=== PATIENT | male | born 1955 | race Caucasian/White ===

== ENCOUNTER 2017-12-14 07:33 | Emergency (ER) | payer MEDICARE, MEDICAID ==
[~2017-12-14] VITALS: Ht 172.7 cm; Wt 75.0 kg
[~2017-12-14 07:33] MED LIST: AZIT250T13 PO; CYCL-1 PO; METH500T PO; NO HOME MEDS
[2017-12-14] MEDS ORDERED: levoFLOXACIN-Levaquin 750MG/D5 150 ML IV ONE (09:05)
[2017-12-14] MEDS ORDERED: normal saline 1000ML IV soln IV ONE (09:05)
[2017-12-14] MEDS ORDERED: CefTRIAXone 2gm/NS 100ml IVPB 100 ML IV ONE (09:05)
[2017-12-14 09:56] LABS: BASOPHILS # (AUTO) 0.2 X10'3 (0-0.2); BASOPHILS % (AUTO) 1.9 % (0-1); EOSINOPHILS # (AUTO) 0.3 X10'3 (0-0.9); EOSINOPHILS % (AUTO) 3.2 % (0-6); HEMOGLOBIN 14.1 g/dl (14.0-17.9); LYMPHOCYTES # (AUTO) 1.6 X10'3 (1.1-4.8); LYMPHOCYTES % (AUTO) 16.4 % (21-51); MEAN CORPUSCULAR HEMOGLOBIN 29.6 PG (27.0-31.0); MEAN CORPUSCULAR HGB CONC 33.5 % (33.0-36.5); MEAN CORPUSCULAR VOLUME 88.7 FL (78-98); MEAN PLATELET VOLUME 8.1 FL (7.4-10.4); MONOCYTES # (AUTO) 0.7 X10'3 (0-0.9); MONOCYTES % (AUTO) 7.4 % (2-12); NEUTROPHILS # (AUTO) 6.8 X10'3 (1.8-7.7); NEUTROPHILS % (AUTO) 71.1 % (42-75); PLATELET COUNT 333 X10'3 (140-440); RED BLOOD COUNT 4.74 X10'6 (4.70-6.10); WHITE BLOOD COUNT 9.6 X10'3 (4.5-11.0)
[2017-12-14 10:10] LABS: ALANINE AMINOTRANSFERASE 28 U/L (12-78); ALBUMIN 3.4 G/DL (3.4-5.0); ALBUMIN/GLOBULIN RATIO 0.9 (1.1-1.5); ALKALINE PHOSPHATASE 126 IU/L (46-116); ANION GAP 6 (8-16); ASPARTATE AMINO TRANSFERASE 21 U/L (10-37); BILIRUBIN,TOTAL 0.3 MG/DL (0.1-1.0); BLOOD UREA NITROGEN 19 MG/DL (7-18); BUN/CREATININE RATIO 25.7 (5.4-32.0); CALCIUM 8.6 MG/DL (8.5-10.1); CHLORIDE 105 MMOL/L (99-107); CREATININE 0.74 MG/DL (0.60-1.10); GLUCOSE 108 MG/DL (70-104); MAGNESIUM 1.8 MG/DL (1.5-2.4); SODIUM 141 MMOL/L (135-145); TOTAL CARBON DIOXIDE 30.3 MMOL/L (24-32); TOTAL PROTEIN 7.4 G/DL (6.4-8.2); eGFR > 90 ML/MIN
[2017-12-14 10:13] LABS: PARTIAL THROMBOPLASTIN TIME 28 SECONDS (22-32); PROTHROMBIN TIME 10.1 SECONDS (9.0-12.0)
[2017-12-14] MEDS ORDERED: dexamethasone 4mg tablet PO ONE (10:30)
[2017-12-14] MEDS ORDERED: albuterol 2.5 MG/3 ML nebule NEB ONE (10:30)
[2017-12-14] MEDS ORDERED: AZIT250T PO (10:44)
[2017-12-14 11:54] VITALS: BP 120/68
== END 2017-12-14 11:57 | disposition home or self-care (01) ==
LOC: ER 07:34
DX: J06.9 Acute upper respiratory infection, unspecified (principal); J18.9 Pneumonia, unspecified organism; J20.9 Acute bronchitis, unspecified; I25.2 Old myocardial infarction; J44.9 Chronic obstructive pulmonary disease, unspecified; K21.9 Gastro-esophageal reflux disease without esophagitis; G89.29 Other chronic pain; F12.90 Cannabis use, unspecified, uncomplicated; F15.90 Other stimulant use, unspecified, uncomplicated; Z59.0 Homelessness; Z91.09 Other allergy status, other than to drugs and biological substances; Z86.73 Personal history of transient ischemic attack (TIA), and cerebral infarction without residual deficits; Z95.5 Presence of coronary angioplasty implant and graft
CPT/HCPCS: 36415; 71046; 80053; 83605; 83735; 84145; 85025; 85610; 85730; 87040; 94640; 94760; 96365; 96366; 96368; 99285; J0696; J1956; J7030; J8540

== ENCOUNTER 2017-12-25 11:36 | Inpatient (IN) | payer MEDICARE, MEDICAID ==
[~2017-12-25] VITALS: Ht 172.7 cm; Wt 77.6 kg
[2017-12-25] MEDS ORDERED: cephalexin 250mg capsule PO ONE (11:55)
[2017-12-25] MEDS ORDERED: sulfamethoxazole/trimethoprim DS (800/160mg) tablet PO ONE (11:55)
[2017-12-25] MEDS ORDERED: HYDROcodone/acetaminophen 5mg/325mg tablet PO ONE (12:05)
[2017-12-25] MEDS ORDERED: CefTRIAXone 2gm/NS 100ml IVPB 100 ML IV ONE (13:05)
[2017-12-25 13:36] LABS: BASOPHILS # (AUTO) 0.1 X10'3 (0-0.2); BASOPHILS % (AUTO) 0.4 % (0-1); EOSINOPHILS # (AUTO) 0.2 X10'3 (0-0.9); EOSINOPHILS % (AUTO) 1.4 % (0-6); HEMATOCRIT 39.7 % (42.0-52.0); HEMOGLOBIN 13.4 g/dl (14.0-17.9); LYMPHOCYTES % (AUTO) 12.4 % (21-51); MEAN CORPUSCULAR HEMOGLOBIN 30.3 PG (27.0-31.0); MEAN CORPUSCULAR HGB CONC 33.6 % (33.0-36.5); MEAN CORPUSCULAR VOLUME 90.1 FL (78-98); MEAN PLATELET VOLUME 7.1 FL (7.4-10.4); MONOCYTES # (AUTO) 1.1 X10'3 (0-0.9); MONOCYTES % (AUTO) 7.2 % (2-12); NEUTROPHILS # (AUTO) 12.4 X10'3 (1.8-7.7); NEUTROPHILS % (AUTO) 78.6 % (42-75); PLATELET COUNT 391 X10'3 (140-440); RED BLOOD COUNT 4.41 X10'6 (4.70-6.10); RED CELL DISTRIBUTION WIDTH 13.9 % (11.5-14.5); WHITE BLOOD COUNT 15.8 X10'3 (4.5-11.0)
[2017-12-25 13:47] LABS: PARTIAL THROMBOPLASTIN TIME 26 SECONDS (22-32); PROTHROMBIN TIME 9.9 SECONDS (9.0-12.0)
[2017-12-25] MEDS ORDERED: vancomycin/NS 1 GM ADD-VANTAGE 250 ML IV ONE (13:50)
[2017-12-25 13:52] LABS: ALANINE AMINOTRANSFERASE 30 U/L (12-78); ALBUMIN 3.6 G/DL (3.4-5.0); ALBUMIN/GLOBULIN RATIO 0.9 (1.1-1.5); ALKALINE PHOSPHATASE 115 IU/L (46-116); ANION GAP 7 (8-16); ASPARTATE AMINO TRANSFERASE 24 U/L (10-37); BILIRUBIN,TOTAL 0.3 MG/DL (0.1-1.0); BLOOD UREA NITROGEN 13 MG/DL (7-18); CALCIUM 8.6 MG/DL (8.5-10.1); CHLORIDE 102 MMOL/L (99-107); CREATININE 0.81 MG/DL (0.60-1.10); GLUCOSE 113 MG/DL (70-104); MAGNESIUM 1.7 MG/DL (1.5-2.4); POTASSIUM 3.9 MMOL/L (3.5-5.1); SODIUM 140 MMOL/L (135-145); TOTAL CARBON DIOXIDE 31.2 MMOL/L (24-32); TOTAL PROTEIN 7.7 G/DL (6.4-8.2); eGFR > 90 ML/MIN
[2017-12-25] MEDS ORDERED: iohexol 300mg/ml 100ml inj. ONE (14:18)
[2017-12-25] MEDS ORDERED: mag hydrox/Alum hydrox/simeth 30ml oral suspension PO PRN (17:05)
[2017-12-25] MEDS ORDERED: acetaminophen 325mg tablet PO PRN (17:05)
[2017-12-25] MEDS ORDERED: magnesium hydroxide 30ml (MOM) UD suspension PO PRN (17:05)
[2017-12-25] MEDS ORDERED: ondansetron/PF 4mg/2ml inj IV PRN (17:05)
[2017-12-25] MEDS: normal saline 1000ml 1,000 ML IV SCH (17:24)
[2017-12-25 18:36] LABS: HEMOGLOBIN A1C 6.5 % (4.5-6.2)
[2017-12-25] MEDS: oxyCODONE/APAP 5-325mg tablet PO PRN ×2 (18:40→23:32)
[2017-12-25] MEDS: cefepime 2g/NS 100ml ADVANTAGE 100 ML IV SCH (20:04)
[2017-12-25 21:05] LABS: CLARITY,URINE Clear (Clear); COLOR,URINE Yellow (Yellow); GLUCOSE, URINE Negative (Neg); KETONES,URINE Negative (Neg); LEUKOCYTE ESTERASE ,URINE Negative (Neg); NITRITES, URINE Negative (Neg); OCCULT BLOOD,URINE Negative (Neg); PH,URINE 7.5 (4.8-8.0); PROTEIN,URINE Negative (Neg); UROBILINOGEN,URINE 0.2 E.U/dL (0.2-1.0)
[2017-12-25 21:09] LABS: UA COLLECTION TYPE NON-SPECIFIED
[2017-12-25 21:17] LABS: URINE AMPHETAMINE SCREEN POSITIVE (Neg); URINE BARBITUATE SCREEN NEGATIVE (Neg); URINE BENZODIAZEPINES SCREEN NEGATIVE (Neg); URINE CANNABINOID SCREEN NEGATIVE (Neg); URINE COCAINE SCREEN NEGATIVE (Neg); URINE METHADONE SCREEN NEGATIVE (Neg); URINE OPIATE SCREEN POSITIVE (Neg); URINE PHENCYCLIDINE SCREEN NEGATIVE (Neg)
[2017-12-26] MEDS: normal saline 1000ml 1,000 ML IV SCH ×3 (03:09→20:17)
[2017-12-26 07:30] VITALS: BP 131/57
[2017-12-26] MEDS: cefepime 2g/NS 100ml ADVANTAGE 100 ML IV SCH ×2 (09:08→20:10)
[2017-12-26 09:54] LABS: BASOPHILS % (AUTO) 0.2 % (0-1); EOSINOPHILS # (AUTO) 0.4 X10'3 (0-0.9); EOSINOPHILS % (AUTO) 2.9 % (0-6); HEMATOCRIT 39.6 % (42.0-52.0); HEMOGLOBIN 13.5 g/dl (14.0-17.9); LYMPHOCYTES # (AUTO) 1.4 X10'3 (1.1-4.8); LYMPHOCYTES % (AUTO) 9.9 % (21-51); MEAN CORPUSCULAR HEMOGLOBIN 30.6 PG (27.0-31.0); MEAN CORPUSCULAR HGB CONC 34.1 % (33.0-36.5); MEAN CORPUSCULAR VOLUME 89.7 FL (78-98); MEAN PLATELET VOLUME 7.3 FL (7.4-10.4); MONOCYTES # (AUTO) 0.8 X10'3 (0-0.9); MONOCYTES % (AUTO) 5.4 % (2-12); NEUTROPHILS # (AUTO) 11.6 X10'3 (1.8-7.7); NEUTROPHILS % (AUTO) 81.6 % (42-75); PLATELET COUNT 352 X10'3 (140-440); RED BLOOD COUNT 4.42 X10'6 (4.70-6.10); RED CELL DISTRIBUTION WIDTH 13.8 % (11.5-14.5); WHITE BLOOD COUNT 14.2 X10'3 (4.5-11.0)
[2017-12-26 10:00] VITALS: BP 148/79
[2017-12-26 11:06] LABS: ALANINE AMINOTRANSFERASE 38 U/L (12-78); ALBUMIN 3.1 G/DL (3.4-5.0); ALBUMIN/GLOBULIN RATIO 0.8 (1.1-1.5); ALKALINE PHOSPHATASE 103 IU/L (46-116); ANION GAP 11 (8-16); ASPARTATE AMINO TRANSFERASE 20 U/L (10-37); BILIRUBIN,TOTAL 0.5 MG/DL (0.1-1.0); BLOOD UREA NITROGEN 10 MG/DL (7-18); BUN/CREATININE RATIO 11.6 (5.4-32.0); CALCIUM 8.2 MG/DL (8.5-10.1); CHLORIDE 104 MMOL/L (99-107); CHOLESTEROL 136 MG/DL (0-200); CREATININE 0.86 MG/DL (0.60-1.10); GLUCOSE 148 MG/DL (70-104); HDL CHOLESTEROL 46 MG/DL (35-60); LDL CHOLESTEROL 76 MG/DL (50-100); POTASSIUM 3.9 MMOL/L (3.5-5.1); SODIUM 141 MMOL/L (135-145); TOTAL CARBON DIOXIDE 26.4 MMOL/L (24-32); TRIGLYCERIDES 79 MG/DL (20-135); eGFR 90 ML/MIN
[2017-12-26] MEDS: oxyCODONE/APAP 5-325mg tablet PO PRN ×2 (11:34→18:11)
[2017-12-26 18:00] VITALS: BP 135/88
[2017-12-26] MEDS: lactobacillus rhamnosus 10,000 MMU CELLS/CAPSULE PO SCH (20:10)
[2017-12-26 22:00] VITALS: BP 138/82
[2017-12-27 06:00] VITALS: BP 154/79
[2017-12-27 06:06] LABS: BASOPHILS % (AUTO) 0.2 % (0-1); EOSINOPHILS # (AUTO) 0.3 X10'3 (0-0.9); EOSINOPHILS % (AUTO) 2.2 % (0-6); HEMATOCRIT 40.4 % (42.0-52.0); HEMOGLOBIN 13.6 g/dl (14.0-17.9); LYMPHOCYTES # (AUTO) 1.5 X10'3 (1.1-4.8); LYMPHOCYTES % (AUTO) 11.9 % (21-51); MEAN CORPUSCULAR HEMOGLOBIN 30.2 PG (27.0-31.0); MEAN CORPUSCULAR HGB CONC 33.7 % (33.0-36.5); MEAN CORPUSCULAR VOLUME 89.8 FL (78-98); MEAN PLATELET VOLUME 7.3 FL (7.4-10.4); MONOCYTES # (AUTO) 0.9 X10'3 (0-0.9); MONOCYTES % (AUTO) 7.3 % (2-12); NEUTROPHILS # (AUTO) 9.8 X10'3 (1.8-7.7); NEUTROPHILS % (AUTO) 78.4 % (42-75); PLATELET COUNT 360 X10'3 (140-440); RED CELL DISTRIBUTION WIDTH 13.9 % (11.5-14.5); WHITE BLOOD COUNT 12.4 X10'3 (4.5-11.0)
[2017-12-27 06:34] LABS: ALANINE AMINOTRANSFERASE 33 U/L (12-78); ALBUMIN 3.1 G/DL (3.4-5.0); ALBUMIN/GLOBULIN RATIO 0.8 (1.1-1.5); ALKALINE PHOSPHATASE 106 IU/L (46-116); ANION GAP 8 (8-16); ASPARTATE AMINO TRANSFERASE 20 U/L (10-37); BILIRUBIN,TOTAL 0.5 MG/DL (0.1-1.0); BLOOD UREA NITROGEN 12 MG/DL (7-18); CALCIUM 8.3 MG/DL (8.5-10.1); CHLORIDE 104 MMOL/L (99-107); GLUCOSE 112 MG/DL (70-104); SODIUM 140 MMOL/L (135-145); TOTAL CARBON DIOXIDE 28.3 MMOL/L (24-32); TOTAL PROTEIN 7.1 G/DL (6.4-8.2); eGFR > 90 ML/MIN
[2017-12-27] MEDS: normal saline 1000ml 1,000 ML IV SCH (07:39)
[2017-12-27] MEDS: nicotine 14mg patch - 24hr TD SCH (07:40)
[2017-12-27] MEDS: lactobacillus rhamnosus 10,000 MMU CELLS/CAPSULE PO SCH ×2 (07:40→20:33)
[2017-12-27] MEDS: cefepime 2g/NS 100ml ADVANTAGE 100 ML IV SCH ×2 (07:40→20:33)
[2017-12-27 10:00] VITALS: BP 138/76
[2017-12-27] MEDS: oxyCODONE/APAP 5-325mg tablet PO PRN (16:17)
[2017-12-27 18:00] VITALS: BP 140/76
[2017-12-28] MEDS: nicotine 14mg patch - 24hr TD SCH (08:00)
[2017-12-28] MEDS: lactobacillus rhamnosus 10,000 MMU CELLS/CAPSULE PO SCH ×2 (08:19→20:58)
[2017-12-28] MEDS: cefepime 2g/NS 100ml ADVANTAGE 100 ML IV SCH ×2 (08:19→20:58)
[2017-12-28 09:26] LABS: BASOPHILS % (AUTO) 0.4 % (0-1); EOSINOPHILS # (AUTO) 0.2 X10'3 (0-0.9); EOSINOPHILS % (AUTO) 2.2 % (0-6); HEMATOCRIT 40.4 % (42.0-52.0); HEMOGLOBIN 13.5 g/dl (14.0-17.9); LYMPHOCYTES # (AUTO) 1.5 X10'3 (1.1-4.8); LYMPHOCYTES % (AUTO) 16.6 % (21-51); MEAN CORPUSCULAR HEMOGLOBIN 30.3 PG (27.0-31.0); MEAN CORPUSCULAR HGB CONC 33.4 % (33.0-36.5); MEAN CORPUSCULAR VOLUME 90.6 FL (78-98); MEAN PLATELET VOLUME 7.8 FL (7.4-10.4); MONOCYTES # (AUTO) 0.7 X10'3 (0-0.9); MONOCYTES % (AUTO) 7.4 % (2-12); NEUTROPHILS # (AUTO) 6.5 X10'3 (1.8-7.7); NEUTROPHILS % (AUTO) 73.4 % (42-75); PLATELET COUNT 360 X10'3 (140-440); RED BLOOD COUNT 4.47 X10'6 (4.70-6.10); RED CELL DISTRIBUTION WIDTH 14.1 % (11.5-14.5); WHITE BLOOD COUNT 8.9 X10'3 (4.5-11.0)
[2017-12-28 09:31] LABS: ALANINE AMINOTRANSFERASE 36 U/L (12-78); ALBUMIN 3.1 G/DL (3.4-5.0); ALBUMIN/GLOBULIN RATIO 0.7 (1.1-1.5); ALKALINE PHOSPHATASE 110 IU/L (46-116); ANION GAP 9 (8-16); ASPARTATE AMINO TRANSFERASE 22 U/L (10-37); BILIRUBIN,TOTAL 0.4 MG/DL (0.1-1.0); BLOOD UREA NITROGEN 13 MG/DL (7-18); BUN/CREATININE RATIO 13.5 (5.4-32.0); CALCIUM 8.4 MG/DL (8.5-10.1); CHLORIDE 103 MMOL/L (99-107); CREATININE 0.96 MG/DL (0.60-1.10); GLUCOSE 181 MG/DL (70-104); POTASSIUM 4.3 MMOL/L (3.5-5.1); SODIUM 140 MMOL/L (135-145); TOTAL CARBON DIOXIDE 27.6 MMOL/L (24-32); TOTAL PROTEIN 7.4 G/DL (6.4-8.2); eGFR 79 ML/MIN
[2017-12-28 10:00] VITALS: BP 148/83
[2017-12-28] MEDS: oxyCODONE/APAP 5-325mg tablet PO PRN (12:45)
[2017-12-28] MEDS: vancomycin/NS 1 GM ADD-VANTAGE 250 ML IV SCH (15:17)
[2017-12-28] MEDS ORDERED: iohexol 300mg/ml 100ml inj. ONE (17:08)
[2017-12-28 18:00] VITALS: BP 113/94
[2017-12-29] MEDS: vancomycin/NS 1 GM ADD-VANTAGE 250 ML IV SCH (02:48)
[2017-12-29 06:59] LABS: BASOPHILS % (AUTO) 0.4 % (0-1); EOSINOPHILS # (AUTO) 0.3 X10'3 (0-0.9); HEMATOCRIT 41.8 % (42.0-52.0); HEMOGLOBIN 13.9 g/dl (14.0-17.9); LYMPHOCYTES # (AUTO) 1.8 X10'3 (1.1-4.8); LYMPHOCYTES % (AUTO) 21.4 % (21-51); MEAN CORPUSCULAR HEMOGLOBIN 30.3 PG (27.0-31.0); MEAN CORPUSCULAR HGB CONC 33.2 % (33.0-36.5); MEAN CORPUSCULAR VOLUME 91.1 FL (78-98); MEAN PLATELET VOLUME 7.9 FL (7.4-10.4); MONOCYTES # (AUTO) 0.7 X10'3 (0-0.9); MONOCYTES % (AUTO) 7.9 % (2-12); NEUTROPHILS # (AUTO) 5.7 X10'3 (1.8-7.7); NEUTROPHILS % (AUTO) 67.3 % (42-75); PLATELET COUNT 384 X10'3 (140-440); RED BLOOD COUNT 4.59 X10'6 (4.70-6.10); RED CELL DISTRIBUTION WIDTH 13.9 % (11.5-14.5); WHITE BLOOD COUNT 8.4 X10'3 (4.5-11.0)
[2017-12-29 07:23] LABS: ALANINE AMINOTRANSFERASE 38 U/L (12-78); ALBUMIN 3.3 G/DL (3.4-5.0); ALBUMIN/GLOBULIN RATIO 0.8 (1.1-1.5); ALKALINE PHOSPHATASE 110 IU/L (46-116); ANION GAP 8 (8-16); ASPARTATE AMINO TRANSFERASE 22 U/L (10-37); BILIRUBIN,TOTAL 0.4 MG/DL (0.1-1.0); BLOOD UREA NITROGEN 17 MG/DL (7-18); BUN/CREATININE RATIO 20.5 (5.4-32.0); CALCIUM 8.8 MG/DL (8.5-10.1); CHLORIDE 103 MMOL/L (99-107); CREATININE 0.83 MG/DL (0.60-1.10); GLUCOSE 130 MG/DL (70-104); POTASSIUM 4.6 MMOL/L (3.5-5.1); SODIUM 139 MMOL/L (135-145); TOTAL CARBON DIOXIDE 28.1 MMOL/L (24-32); TOTAL PROTEIN 7.7 G/DL (6.4-8.2); eGFR > 90 ML/MIN
[2017-12-29] MEDS: nicotine 14mg patch - 24hr TD SCH (08:00)
[2017-12-29] MEDS: lactobacillus rhamnosus 10,000 MMU CELLS/CAPSULE PO SCH ×2 (09:51→20:34)
[2017-12-29 10:00] VITALS: BP 134/76
[2017-12-29] MEDS ORDERED: CEFEPIME 1 GM in NORMAL SALINE 100ml IV.SOLN IV SCH (10:08)
[2017-12-29] MEDS ORDERED: vancomycin/NS 1 GM ADD-VANTAGE 250 ML IV SCH (13:00)
[2017-12-29 18:00] VITALS: BP 159/61
[2017-12-29] MEDS: linezolid 600mg tablet PO SCH (20:34)
[2017-12-29 22:00] VITALS: BP 151/74
[2017-12-30 06:00] VITALS: BP 164/77
[2017-12-30 06:35] LABS: BASOPHILS % (AUTO) 0.6 % (0-1); EOSINOPHILS # (AUTO) 0.2 X10'3 (0-0.9); EOSINOPHILS % (AUTO) 3.1 % (0-6); HEMATOCRIT 42.2 % (42.0-52.0); HEMOGLOBIN 14.1 g/dl (14.0-17.9); LYMPHOCYTES # (AUTO) 1.4 X10'3 (1.1-4.8); LYMPHOCYTES % (AUTO) 17.5 % (21-51); MEAN CORPUSCULAR HEMOGLOBIN 30.3 PG (27.0-31.0); MEAN CORPUSCULAR HGB CONC 33.5 % (33.0-36.5); MEAN CORPUSCULAR VOLUME 90.3 FL (78-98); MEAN PLATELET VOLUME 7.7 FL (7.4-10.4); MONOCYTES # (AUTO) 0.6 X10'3 (0-0.9); MONOCYTES % (AUTO) 7.5 % (2-12); NEUTROPHILS # (AUTO) 5.5 X10'3 (1.8-7.7); NEUTROPHILS % (AUTO) 71.3 % (42-75); PLATELET COUNT 401 X10'3 (140-440); RED BLOOD COUNT 4.67 X10'6 (4.70-6.10); RED CELL DISTRIBUTION WIDTH 13.8 % (11.5-14.5); WHITE BLOOD COUNT 7.8 X10'3 (4.5-11.0)
[2017-12-30 07:02] LABS: ALANINE AMINOTRANSFERASE 39 U/L (12-78); ALBUMIN 3.4 G/DL (3.4-5.0); ALBUMIN/GLOBULIN RATIO 0.8 (1.1-1.5); ALKALINE PHOSPHATASE 112 IU/L (46-116); ANION GAP 9 (8-16); ASPARTATE AMINO TRANSFERASE 22 U/L (10-37); BILIRUBIN,TOTAL 0.4 MG/DL (0.1-1.0); BLOOD UREA NITROGEN 17 MG/DL (7-18); CALCIUM 8.8 MG/DL (8.5-10.1); CHLORIDE 102 MMOL/L (99-107); CREATININE 0.85 MG/DL (0.60-1.10); GLUCOSE 115 MG/DL (70-104); POTASSIUM 4.4 MMOL/L (3.5-5.1); SODIUM 140 MMOL/L (135-145); TOTAL CARBON DIOXIDE 29.1 MMOL/L (24-32); TOTAL PROTEIN 7.8 G/DL (6.4-8.2); eGFR > 90 ML/MIN
[2017-12-30] MEDS: nicotine 14mg patch - 24hr TD SCH (07:07)
[2017-12-30] MEDS: lactobacillus rhamnosus 10,000 MMU CELLS/CAPSULE PO SCH (07:24)
[2017-12-30] MEDS: linezolid 600mg tablet PO SCH (07:24)
[2017-12-30 10:00] VITALS: BP 178/78
[2017-12-30] MEDS ORDERED: VANCOMYCIN LEVEL IV ONE (12:30)
[2017-12-30] MEDS ORDERED: LINE600T6 PO (12:49)
[2017-12-30] MEDS ORDERED: AMLO5TAB4 PO (12:50)
== END 2017-12-30 16:05 | disposition home or self-care (01) | DRG 603 ==
LOC: ER 11:37 → ED HOLD 17:01 → EDBEDREQ 12-26 06:38 → ORTHO 4S 12-26 07:30
PROVIDERS: ADMIT Family Medicine; ATTEND Internal Medicine
PROC: BP2T1ZZ Computerized Tomography (CT Scan) of Right Upper Extremity using Low Osmolar Contrast (ICD-10-PCS; principal; 2017-12-25)
PROC: BP2T1ZZ Computerized Tomography (CT Scan) of Right Upper Extremity using Low Osmolar Contrast (ICD-10-PCS; 2017-12-28)
DX: L03.113 Cellulitis of right upper limb (principal); B95.62 Methicillin resistant Staphylococcus aureus infection as the cause of diseases classified elsewhere; L02.413 Cutaneous abscess of right upper limb; G89.29 Other chronic pain; J44.9 Chronic obstructive pulmonary disease, unspecified; M54.9 Dorsalgia, unspecified; I25.10 Atherosclerotic heart disease of native coronary artery without angina pectoris; K21.9 Gastro-esophageal reflux disease without esophagitis; F19.10 Other psychoactive substance abuse, uncomplicated; F12.90 Cannabis use, unspecified, uncomplicated; F17.210 Nicotine dependence, cigarettes, uncomplicated; Z95.5 Presence of coronary angioplasty implant and graft; Z59.0 Homelessness; I25.2 Old myocardial infarction; Z91.19 Patient's noncompliance with other medical treatment and regimen; Z88.8 Allergy status to other drugs, medicaments and biological substances; Z86.73 Personal history of transient ischemic attack (TIA), and cerebral infarction without residual deficits; Z87.01 Personal history of pneumonia (recurrent); Z80.6 Family history of leukemia; Z71.51 Drug abuse counseling and surveillance of drug abuser
CPT/HCPCS: 36415; 71046; 73201; 80053; 80061; 80202; 80305; 81003; 83036; 83605; 83735; 84145; 85025; 85610; 85730; 87040; 87070; 87077; 87186; 93971; 96365; 96366; 96368; 99285; A6212; J0692; J0696; J3370; J7030; Q9967

== ENCOUNTER 2018-09-21 17:06 | Emergency (ER) | payer MEDICARE, MEDICAID ==
[~2018-09-21] VITALS: Ht 172.7 cm; Wt 72.3 kg
[~2018-09-21 17:06] MED LIST changes: +AMLO5TAB4 PO; -AZIT250T13 PO; -CYCL-1 PO; +LINE600T32 PO; -METH500T PO; -NO HOME MEDS
[2018-09-21 17:35] VITALS: BP 145/86
[2018-09-21] MEDS ORDERED: DOXYCYCLINE 100MG CAPSULE PO STA (18:13)
[2018-09-21] MEDS ORDERED: ibuprofen tablet 400 MG TABLET PO ONE (18:15)
[2018-09-21] MEDS ORDERED: DOXY100C43 PO (18:16)
== END 2018-09-21 18:38 | disposition home or self-care (01) ==
LOC: ER 17:07
DX: S60.416A Abrasion of right little finger, initial encounter (principal); L03.113 Cellulitis of right upper limb; I25.2 Old myocardial infarction; J44.9 Chronic obstructive pulmonary disease, unspecified; K21.9 Gastro-esophageal reflux disease without esophagitis; G89.29 Other chronic pain; F12.90 Cannabis use, unspecified, uncomplicated; F15.90 Other stimulant use, unspecified, uncomplicated; Z86.73 Personal history of transient ischemic attack (TIA), and cerebral infarction without residual deficits; Z98.61 Coronary angioplasty status; Z98.890 Other specified postprocedural states; Z59.0 Homelessness; Z88.8 Allergy status to other drugs, medicaments and biological substances; Z79.899 Other long term (current) drug therapy; X58.XXXA Exposure to other specified factors, initial encounter; Y93.89 Activity, other specified; Y92.89 Other specified places as the place of occurrence of the external cause; Y99.8 Other external cause status
CPT/HCPCS: 99284

== ENCOUNTER 2018-09-22 19:25 | Inpatient (IN) | payer MEDICARE, MEDICAID ==
[~2018-09-22] VITALS: Ht 172.7 cm; Wt 77.0 kg
[~2018-09-22 19:25] MED LIST changes: +DOXY100C43 PO
[2018-09-22] MEDS ORDERED: acetaminophen 325mg tablet PO STA (20:39)
[2018-09-22] MEDS ORDERED: CefTRIAXone 2gm/D5W 50ml 50 ML IV ONE (20:40)
[2018-09-22] MEDS ORDERED: vancomycin/NS 1 GM ADD-VANTAGE 250 ML IV ONE (20:40)
[2018-09-22] MEDS ORDERED: normal saline 1000ML IV soln IV ONE (20:40)
[2018-09-22 21:06] LABS: BASOPHILS % (AUTO) 0.2 % (0-1); EOSINOPHILS # (AUTO) 0.3 X10'3 (0-0.9); HEMATOCRIT 40.5 % (42.0-52.0); HEMOGLOBIN 13.2 g/dl (14.0-17.9); LYMPHOCYTES # (AUTO) 1.2 X10'3 (1.1-4.8); LYMPHOCYTES % (AUTO) 9.5 % (21-51); MEAN CORPUSCULAR HEMOGLOBIN 29.8 PG (27.0-31.0); MEAN CORPUSCULAR HGB CONC 32.6 % (33.0-36.5); MEAN CORPUSCULAR VOLUME 91.3 FL (78-98); MEAN PLATELET VOLUME 7.4 FL (7.4-10.4); MONOCYTES % (AUTO) 7.9 % (2-12); NEUTROPHILS # (AUTO) 10.2 X10'3 (1.8-7.7); NEUTROPHILS % (AUTO) 80.4 % (42-75); PLATELET COUNT 427 X10'3 (140-440); RED BLOOD COUNT 4.43 X10'6 (4.70-6.10); WHITE BLOOD COUNT 12.7 X10'3 (4.5-11.0)
[2018-09-22 21:21] LABS: ALANINE AMINOTRANSFERASE 41 U/L (12-78); ALBUMIN 3.3 G/DL (3.4-5.0); ALBUMIN/GLOBULIN RATIO 0.9 (1.1-1.5); ALKALINE PHOSPHATASE 103 IU/L (46-116); ANION GAP 4 (8-16); ASPARTATE AMINO TRANSFERASE 26 U/L (10-37); BILIRUBIN,TOTAL 0.6 MG/DL (0.1-1.0); BLOOD UREA NITROGEN 19 MG/DL (7-18); BUN/CREATININE RATIO 20.9 (5.4-32.0); CALCIUM 8.7 MG/DL (8.5-10.1); CHLORIDE 103 MMOL/L (99-107); CREATININE 0.91 MG/DL (0.60-1.10); GLUCOSE 93 MG/DL (70-104); MAGNESIUM 1.7 MG/DL (1.5-2.4); POTASSIUM 3.7 MMOL/L (3.5-5.1); SODIUM 138 MMOL/L (135-145); TOTAL CARBON DIOXIDE 30.7 MMOL/L (24-32); TOTAL PROTEIN 6.9 G/DL (6.4-8.2); eGFR 84 ML/MIN
[2018-09-22 21:38] LABS: INR 1.1 INR; PARTIAL THROMBOPLASTIN TIME 29 SECONDS (22-32); PROTHROMBIN TIME 10.7 SECONDS (9.0-12.0)
[2018-09-22] MEDS ORDERED: mag hydrox/Alum hydrox/simeth 30ml oral suspension PO PRN (23:05)
[2018-09-22] MEDS ORDERED: magnesium hydroxide 30ml (MOM) UD suspension PO PRN (23:05)
[2018-09-22] MEDS ORDERED: ondansetron/PF 4mg/2ml inj IV PRN (23:05)
[2018-09-22] MEDS ORDERED: morphine 2 MG/ML inj. syringe IV PRN (23:05)
[2018-09-22] MEDS ORDERED: morphine 4 MG/ML inj SYRINge IV ONE (23:05)
[2018-09-22] MEDS ORDERED: acetaminophen 325mg tablet PO PRN ×2 (23:05)
[2018-09-23 00:05] VITALS: BP 153/77
[2018-09-23] MEDS: normal saline 1000ml 1,000 ML IV SCH ×3 (00:45→15:14)
[2018-09-23 04:29] LABS: BASOPHILS # (AUTO) 0.1 X10'3 (0-0.2); BASOPHILS % (AUTO) 1.2 % (0-1); EOSINOPHILS # (AUTO) 0.2 X10'3 (0-0.9); EOSINOPHILS % (AUTO) 2.1 % (0-6); HEMATOCRIT 41.4 % (42.0-52.0); HEMOGLOBIN 13.4 g/dl (14.0-17.9); LYMPHOCYTES # (AUTO) 1.6 X10'3 (1.1-4.8); LYMPHOCYTES % (AUTO) 14.3 % (21-51); MEAN CORPUSCULAR HEMOGLOBIN 29.9 PG (27.0-31.0); MEAN CORPUSCULAR HGB CONC 32.3 % (33.0-36.5); MEAN CORPUSCULAR VOLUME 92.6 FL (78-98); MEAN PLATELET VOLUME 8.4 FL (7.4-10.4); MONOCYTES # (AUTO) 1.2 X10'3 (0-0.9); MONOCYTES % (AUTO) 10.4 % (2-12); NEUTROPHILS # (AUTO) 8.1 X10'3 (1.8-7.7); PLATELET COUNT 384 X10'3 (140-440); RED BLOOD COUNT 4.47 X10'6 (4.70-6.10); RED CELL DISTRIBUTION WIDTH 14.3 % (11.5-14.5); WHITE BLOOD COUNT 11.2 X10'3 (4.5-11.0)
[2018-09-23 04:38] LABS: ALBUMIN 3.1 G/DL (3.4-5.0); ANION GAP 8 (8-16); BLOOD UREA NITROGEN 13 MG/DL (7-18); BUN/CREATININE RATIO 16.9 (5.4-32.0); CALCIUM 8.1 MG/DL (8.5-10.1); CHLORIDE 105 MMOL/L (99-107); CREATININE 0.77 MG/DL (0.60-1.10); GLUCOSE 108 MG/DL (70-104); POTASSIUM 3.7 MMOL/L (3.5-5.1); SODIUM 139 MMOL/L (135-145); TOTAL CARBON DIOXIDE 26.3 MMOL/L (24-32); eGFR > 90 ML/MIN
[2018-09-23 07:09] VITALS: BP 141/79
[2018-09-23] MEDS ORDERED: vancomycin/NS 1 GM ADD-VANTAGE 250 ML IV SCH (08:00)
[2018-09-23] MEDS: vancomycin/NS 1 GM ADD-VANTAGE 250 ML IV SCH ×3 (08:28→23:40)
[2018-09-23] MEDS: amLODIPine 5mg tablet PO SCH (08:28)
[2018-09-23] MEDS: morphine 2 MG/ML inj. syringe IV PRN ×2 (08:31→18:49)
[2018-09-23 11:14] VITALS: BP 116/77
[2018-09-23] MEDS ORDERED: nicotine 14mg patch - 24hr TD SCH (15:20)
[2018-09-23 19:00] VITALS: BP 132/68
[2018-09-23] MEDS: lactobacillus rhamnosus 10,000 MMU CELLS/CAPSULE PO SCH (20:28)
[2018-09-23] MEDS: CefTRIAXone 2gm/D5W 50ml 50 ML IV SCH (20:29)
[2018-09-24] VITALS: BP 131/63
[2018-09-24] MEDS: morphine 2 MG/ML inj. syringe IV PRN ×2 (03:47→12:03)
[2018-09-24] MEDS: normal saline 1000ml 1,000 ML IV SCH ×3 (04:57→17:17)
[2018-09-24] MEDS ORDERED: VANCOMYCIN LEVEL IV ONE (07:30)
[2018-09-24 07:56] VITALS: BP 135/73
[2018-09-24] MEDS: amLODIPine 5mg tablet PO SCH (08:11)
[2018-09-24] MEDS: lactobacillus rhamnosus 10,000 MMU CELLS/CAPSULE PO SCH ×2 (08:11→20:00)
[2018-09-24] MEDS: vancomycin/NS 1 GM ADD-VANTAGE 250 ML IV SCH (08:11)
[2018-09-24 08:15] LABS: BASOPHILS # (AUTO) 0.1 X10'3 (0-0.2); BASOPHILS % (AUTO) 1.2 % (0-1); EOSINOPHILS # (AUTO) 0.2 X10'3 (0-0.9); EOSINOPHILS % (AUTO) 1.6 % (0-6); HEMATOCRIT 40.6 % (42.0-52.0); HEMOGLOBIN 13.2 g/dl (14.0-17.9); LYMPHOCYTES # (AUTO) 1.6 X10'3 (1.1-4.8); LYMPHOCYTES % (AUTO) 13.2 % (21-51); MEAN CORPUSCULAR HEMOGLOBIN 29.7 PG (27.0-31.0); MEAN CORPUSCULAR HGB CONC 32.4 % (33.0-36.5); MEAN CORPUSCULAR VOLUME 91.6 FL (78-98); MEAN PLATELET VOLUME 7.7 FL (7.4-10.4); MONOCYTES # (AUTO) 1.1 X10'3 (0-0.9); MONOCYTES % (AUTO) 9.2 % (2-12); NEUTROPHILS # (AUTO) 8.9 X10'3 (1.8-7.7); NEUTROPHILS % (AUTO) 74.8 % (42-75); PLATELET COUNT 387 X10'3 (140-440); RED BLOOD COUNT 4.42 X10'6 (4.70-6.10); RED CELL DISTRIBUTION WIDTH 14.1 % (11.5-14.5); WHITE BLOOD COUNT 11.9 X10'3 (4.5-11.0)
[2018-09-24 08:30] LABS: ALBUMIN 2.7 G/DL (3.4-5.0); ANION GAP 7 (8-16); BLOOD UREA NITROGEN 11 MG/DL (7-18); BUN/CREATININE RATIO 12.6 (5.4-32.0); CHLORIDE 103 MMOL/L (99-107); CREATININE 0.87 MG/DL (0.60-1.10); GLUCOSE 131 MG/DL (70-104); POTASSIUM 3.6 MMOL/L (3.5-5.1); SODIUM 139 MMOL/L (135-145); TOTAL CARBON DIOXIDE 28.8 MMOL/L (24-32); VANCOMYCIN,TROUGH 10.7 UG/ML (6.0-14.0); eGFR 89 ML/MIN
[2018-09-24 11:28] VITALS: BP 121/59
[2018-09-24] MEDS ORDERED: HYDROcodone/acetaminophen 5mg/325mg tablet PO PRN (13:00)
[2018-09-24] MEDS ORDERED: iohexol 300mg/ml 100ml inj. ONE (13:50)
[2018-09-24] MEDS: vancomycin inj 1,250 MG in normal saline 250ml IV soln 250 ML IV SCH (16:06)
[2018-09-24 20:00] VITALS: BP 135/72
[2018-09-24] MEDS: CefTRIAXone 2gm/D5W 50ml 50 ML IV SCH (20:00)
[2018-09-25] MEDS: vancomycin inj 1,250 MG in normal saline 250ml IV soln 250 ML IV SCH (00:11)
[2018-09-25] MEDS ORDERED: VANCOMYCIN LEVEL IV ONE (15:30)
== END 2018-09-25 05:59 | disposition left against medical advice (07) | DRG 872 ==
LOC: ER 19:26 → ED HOLD 23:05 → SUR 3N 23:59
PROVIDERS: ADMIT Internal Medicine; ATTEND Internal Medicine
DX: A41.9 Sepsis, unspecified organism (principal); L03.113 Cellulitis of right upper limb; F17.210 Nicotine dependence, cigarettes, uncomplicated; I25.10 Atherosclerotic heart disease of native coronary artery without angina pectoris; J44.9 Chronic obstructive pulmonary disease, unspecified; K21.9 Gastro-esophageal reflux disease without esophagitis; F12.90 Cannabis use, unspecified, uncomplicated; F15.10 Other stimulant abuse, uncomplicated; G89.29 Other chronic pain; M54.9 Dorsalgia, unspecified; E86.0 Dehydration; D64.9 Anemia, unspecified; I10 Essential (primary) hypertension; Z53.21 Procedure and treatment not carried out due to patient leaving prior to being seen by health care provider; R19.7 Diarrhea, unspecified; I25.2 Old myocardial infarction; Z59.0 Homelessness; Z91.19 Patient's noncompliance with other medical treatment and regimen; Z95.5 Presence of coronary angioplasty implant and graft; Z88.8 Allergy status to other drugs, medicaments and biological substances; Z79.899 Other long term (current) drug therapy; Z86.73 Personal history of transient ischemic attack (TIA), and cerebral infarction without residual deficits; Z80.6 Family history of leukemia
CPT/HCPCS: 36415; 73080; 73090; 73201; 80048; 80053; 80202; 83605; 83735; 84145; 85025; 85610; 85730; 87040; 87070; 96365; 96368; 99285; G0378; J0696; J2270; J3370; J7030; Q9967

== ENCOUNTER 2018-10-12 10:58 | Emergency (ER) | payer MEDICARE, MEDICAID ==
[~2018-10-12] VITALS: Ht 172.7 cm; Wt 72.7 kg
[~2018-10-12 10:58] MED LIST changes: -DOXY100C43 PO
[2018-10-12 11:54] VITALS: BP 153/78
[2018-10-12] MEDS ORDERED: LIDOcaine 1.5% w/epinephrine 1:200,000 5ml ampul IJ ONE (13:55)
[2018-10-12] MEDS ORDERED: TETanus/Pertussis (Acell)/Diphther VAC/PF (Tdap-Adult) 0.5ml syringe IM ONE (13:55)
[2018-10-12] MEDS ORDERED: CEPH-572 PO (14:13)
[2018-10-12] MEDS ORDERED: SULF1TAB49 PO (14:13)
[2018-10-12] MEDS ORDERED: cephalexin 250mg capsule PO ONE (14:15)
[2018-10-12] MEDS ORDERED: sulfamethoxazole/trimethoprim DS (800/160mg) tablet PO ONE (14:15)
== END 2018-10-12 14:25 | disposition home or self-care (01) ==
LOC: ER 10:59
DX: L02.414 Cutaneous abscess of left upper limb (principal); I25.2 Old myocardial infarction; J44.9 Chronic obstructive pulmonary disease, unspecified; K21.9 Gastro-esophageal reflux disease without esophagitis; G89.29 Other chronic pain; F12.90 Cannabis use, unspecified, uncomplicated; F15.90 Other stimulant use, unspecified, uncomplicated; Z98.890 Other specified postprocedural states; Z95.5 Presence of coronary angioplasty implant and graft; Z59.0 Homelessness; Z86.73 Personal history of transient ischemic attack (TIA), and cerebral infarction without residual deficits; Z79.899 Other long term (current) drug therapy; Z88.6 Allergy status to analgesic agent; Z88.8 Allergy status to other drugs, medicaments and biological substances
CPT/HCPCS: 10060; 90471; 90715; 96372; 99283; J3490

== ENCOUNTER 2018-10-19 20:55 | Emergency (ER) | payer MEDICARE, MEDICAID ==
[~2018-10-19] VITALS: Ht 172.7 cm; Wt 67.2 kg
[~2018-10-19 20:55] MED LIST changes: +CEPH-572 PO; +SULF1TAB49 PO
[2018-10-19 21:26] VITALS: BP 154/90
[2018-10-19] MEDS ORDERED: bacitracin 15gm ointment TP ONE (21:35)
[2018-10-19] MEDS ORDERED: acetaminophen 325mg tablet PO ONE (21:35)
[2018-10-19] MEDS ORDERED: amox tr/potassium clavulanate 500mg/125mg TAB PO ONE (21:35)
[2018-10-19] MEDS ORDERED: AMOX-422 PO (22:15)
[2018-10-19] MEDS ORDERED: rabies vaccine (PCEC)/PF 2.5 unit kit IMVAC ONE (22:25)
[2018-10-19] MEDS ORDERED: rabies immune globulin/PF 150 unit/ml inj IMVAC STA (22:25)
== END 2018-10-19 23:20 | disposition home or self-care (01) ==
LOC: ER 20:56
DX: S61.451A Open bite of right hand, initial encounter (principal); S60.221A Contusion of right hand, initial encounter; I25.2 Old myocardial infarction; J44.9 Chronic obstructive pulmonary disease, unspecified; K21.9 Gastro-esophageal reflux disease without esophagitis; G89.29 Other chronic pain; Z86.73 Personal history of transient ischemic attack (TIA), and cerebral infarction without residual deficits; F12.90 Cannabis use, unspecified, uncomplicated; F15.90 Other stimulant use, unspecified, uncomplicated; Z98.61 Coronary angioplasty status; Z88.6 Allergy status to analgesic agent; Z88.8 Allergy status to other drugs, medicaments and biological substances; Z79.899 Other long term (current) drug therapy; Z59.0 Homelessness; W54.0XXA Bitten by dog, initial encounter; Y93.89 Activity, other specified; Y92.89 Other specified places as the place of occurrence of the external cause; Y99.8 Other external cause status
CPT/HCPCS: 73130; 90375; 90675; 99284

== ENCOUNTER 2018-11-05 11:30 | Emergency (ER) | payer MEDICARE, MEDICAID ==
[~2018-11-05] VITALS: Ht 172.7 cm; Wt 73.2 kg
[~2018-11-05 11:30] MED LIST changes: -CEPH-572 PO; -SULF1TAB49 PO
[2018-11-05 12:15] VITALS: BP 148/84
[2018-11-05] MEDS ORDERED: LIDOcaine 1.5% w/epinephrine 1:200,000 5ml ampul IJ ONE (14:30)
[2018-11-05] MEDS ORDERED: LIDOcaine 1% w/epiNEPHrine 1:200,000 30ml vial IJ ONE (14:35)
[2018-11-05] MEDS ORDERED: CEPH-572 PO (14:48)
[2018-11-05] MEDS ORDERED: SULF1TAB49 PO (14:48)
--- NOTE | 2018-11-05 15:00 | NUR ---
Patient did not receive lidocaine injection, patient unable to hold still to allow PA to perform procedure.
--- NOTE | 2018-11-05 15:11 | NUR ---
Patient seen and assessed by provider.
== END 2018-11-05 15:11 | disposition home or self-care (01) ==
LOC: ER 11:31
DX: L02.415 Cutaneous abscess of right lower limb (principal); I25.2 Old myocardial infarction; J44.9 Chronic obstructive pulmonary disease, unspecified; K21.9 Gastro-esophageal reflux disease without esophagitis; G89.29 Other chronic pain; F12.90 Cannabis use, unspecified, uncomplicated; F15.90 Other stimulant use, unspecified, uncomplicated; Z86.73 Personal history of transient ischemic attack (TIA), and cerebral infarction without residual deficits; Z98.890 Other specified postprocedural states; Z95.5 Presence of coronary angioplasty implant and graft; Z59.0 Homelessness; Z88.8 Allergy status to other drugs, medicaments and biological substances; Z88.6 Allergy status to analgesic agent; Z79.899 Other long term (current) drug therapy
CPT/HCPCS: 99283; J3490

== ENCOUNTER 2018-11-06 15:44 | Emergency (ER) | payer MEDICARE, MEDICAID ==
[~2018-11-06] VITALS: Ht 172.7 cm; Wt 68.0 kg
[~2018-11-06 15:44] MED LIST changes: +CEPH-572 PO; +SULF1TAB49 PO
[2018-11-06 15:57] VITALS: BP 130/69
[2018-11-06] MEDS ORDERED: acetaminophen 325mg tablet PO ONE (16:15)
[2018-11-06] MEDS ORDERED: BUPIVAcaine/PF 2.5 mg/ml (0.25%) 30ml vial IJ ONE (16:15)
[2018-11-06] MEDS ORDERED: BUPIVAcaine/PF 2.5mg/ml (0.25%) 10ml vial IJ ONE (16:20)
== END 2018-11-06 18:18 | disposition home or self-care (01) ==
LOC: ER 15:45
DX: L03.115 Cellulitis of right lower limb (principal); L53.8 Other specified erythematous conditions; R60.0 Localized edema; I25.2 Old myocardial infarction; J44.9 Chronic obstructive pulmonary disease, unspecified; K21.9 Gastro-esophageal reflux disease without esophagitis; G89.29 Other chronic pain; F15.90 Other stimulant use, unspecified, uncomplicated; Z95.5 Presence of coronary angioplasty implant and graft; Z59.0 Homelessness; Z98.890 Other specified postprocedural states; Z86.73 Personal history of transient ischemic attack (TIA), and cerebral infarction without residual deficits; Z88.8 Allergy status to other drugs, medicaments and biological substances; Z88.6 Allergy status to analgesic agent; Z79.899 Other long term (current) drug therapy
CPT/HCPCS: 10060; 87070; 87077; 87186; 99283; J3490

== ENCOUNTER 2018-11-07 08:10 | Emergency (ER) | payer MEDICARE, MEDICAID ==
[~2018-11-07] VITALS: Ht 172.7 cm; Wt 72.7 kg
[2018-11-07 08:18] VITALS: BP 145/82
[2018-11-07] MEDS ORDERED: HYDROcodone/acetaminophen 10/325mg tab PO ONE (08:30)
== END 2018-11-07 09:20 | disposition home or self-care (01) ==
LOC: ER 08:11
DX: L02.415 Cutaneous abscess of right lower limb (principal); I25.2 Old myocardial infarction; J44.9 Chronic obstructive pulmonary disease, unspecified; G89.29 Other chronic pain; K21.9 Gastro-esophageal reflux disease without esophagitis; Z59.0 Homelessness; F12.90 Cannabis use, unspecified, uncomplicated; F15.90 Other stimulant use, unspecified, uncomplicated; Z88.8 Allergy status to other drugs, medicaments and biological substances; Z88.6 Allergy status to analgesic agent; Z79.899 Other long term (current) drug therapy; Z86.73 Personal history of transient ischemic attack (TIA), and cerebral infarction without residual deficits; Z86.718 Personal history of other venous thrombosis and embolism; Z95.5 Presence of coronary angioplasty implant and graft; Z98.890 Other specified postprocedural states
CPT/HCPCS: 99284

== ENCOUNTER 2018-11-08 08:39 | Emergency (ER) | payer MEDICARE, MEDICAID ==
[~2018-11-08] VITALS: Ht 172.7 cm; Wt 63.0 kg
[2018-11-08 08:40] VITALS: BP 112/79
== END 2018-11-08 09:22 | disposition home or self-care (01) ==
LOC: ER 08:39
DX: L02.415 Cutaneous abscess of right lower limb (principal); J44.9 Chronic obstructive pulmonary disease, unspecified; I25.2 Old myocardial infarction; K21.9 Gastro-esophageal reflux disease without esophagitis; G89.29 Other chronic pain; Z86.73 Personal history of transient ischemic attack (TIA), and cerebral infarction without residual deficits; I20.9 Angina pectoris, unspecified; F12.90 Cannabis use, unspecified, uncomplicated; F15.90 Other stimulant use, unspecified, uncomplicated; Z98.61 Coronary angioplasty status; Z88.6 Allergy status to analgesic agent; Z88.8 Allergy status to other drugs, medicaments and biological substances; Z79.899 Other long term (current) drug therapy; Z59.0 Homelessness
CPT/HCPCS: 99281

== ENCOUNTER 2018-11-10 01:53 | Emergency (ER) | payer MEDICARE, MEDICAID ==
[~2018-11-10] VITALS: Ht 172.7 cm; Wt 72.7 kg
[2018-11-10 01:55] VITALS: BP 129/79
[2018-11-10] MEDS ORDERED: DOXYCYCLINE 100MG CAPSULE PO STA (02:18)
[2018-11-10] MEDS ORDERED: ondansetron 4mg rapidly disintigrating tab PO ONE (02:20)
[2018-11-10] MEDS ORDERED: cephalexin 500mg capsule PO ONE (02:20)
[2018-11-10] MEDS ORDERED: acetaminophen 325mg tablet PO ONE (02:25)
--- NOTE | 2018-11-10 03:24 | NUR ---
VASCULAR PAGED AGAIN PER COTY TECH
--- NOTE | 2018-11-10 04:48 | NUR ---
VASCULAR STUDY IN PROGRESS
[2018-11-10] MEDS ORDERED: DOXY100C43 PO (04:55)
[2018-11-10] MEDS ORDERED: CEPH-572 PO (04:55)
== END 2018-11-10 05:13 | disposition home or self-care (01) ==
LOC: ER 01:53
DX: L03.115 Cellulitis of right lower limb (principal); I25.2 Old myocardial infarction; J44.9 Chronic obstructive pulmonary disease, unspecified; K21.9 Gastro-esophageal reflux disease without esophagitis; G89.29 Other chronic pain; F12.90 Cannabis use, unspecified, uncomplicated; F15.90 Other stimulant use, unspecified, uncomplicated; Z98.890 Other specified postprocedural states; Z98.61 Coronary angioplasty status; Z59.0 Homelessness; Z88.8 Allergy status to other drugs, medicaments and biological substances; Z79.2 Long term (current) use of antibiotics; Z79.899 Other long term (current) drug therapy
CPT/HCPCS: 93971; 99284

== ENCOUNTER 2019-01-01 04:18 | Emergency (ER) | payer MEDICARE, MEDICAID ==
[~2019-01-01 04:18] MED LIST changes: -CEPH-572 PO; -SULF1TAB49 PO
== END 2019-01-01 04:50 | disposition home or self-care (01) ==
LOC: ER 04:18
DX: M25.511 Pain in right shoulder (principal); I25.2 Old myocardial infarction; J44.9 Chronic obstructive pulmonary disease, unspecified; K21.9 Gastro-esophageal reflux disease without esophagitis; G89.29 Other chronic pain; F12.90 Cannabis use, unspecified, uncomplicated; F15.90 Other stimulant use, unspecified, uncomplicated; Z86.73 Personal history of transient ischemic attack (TIA), and cerebral infarction without residual deficits; Z59.0 Homelessness; Z95.5 Presence of coronary angioplasty implant and graft; Z88.8 Allergy status to other drugs, medicaments and biological substances; Z88.6 Allergy status to analgesic agent; Z79.899 Other long term (current) drug therapy
CPT/HCPCS: 99281

== ENCOUNTER 2019-10-10 13:22 | Emergency (ER) | payer MEDICARE, MEDICAID ==
[~2019-10-10] VITALS: Ht 172.7 cm; Wt 70.5 kg
[~2019-10-10 13:22] MED LIST changes: +LINE600T14 PO; -LINE600T32 PO
[2019-10-10 13:45] VITALS: BP 163/93
--- NOTE | 2019-10-10 14:45 | NUR ---
Afua from [employer] she will be down shortly
--- NOTE | 2019-10-10 15:05 | NUR ---
Patient stated that he "broke both of his hips and legs" patient then proceeded to get out of his wheelchair and ambulate to the bed appox 2.5 feet without difficulty.
--- NOTE | 2019-10-10 15:19 | NUR ---
[employer] HERE TO SEE PT.
--- NOTE | 2019-10-10 15:52 | NUR ---
Clinical Dermatologist came to see patient. Patient refused to answer simple questions. After each question such as, "where are you staying?" Patient would say "I don't answer questions, speak to my pump rebuilder." Patient is n/c and refuses to answer questions.
== END 2019-10-10 16:12 | disposition home or self-care (01) ==
LOC: ER 13:23
DX: G89.18 Other acute postprocedural pain (principal); I25.2 Old myocardial infarction; J44.9 Chronic obstructive pulmonary disease, unspecified; K21.9 Gastro-esophageal reflux disease without esophagitis; G89.29 Other chronic pain; F12.90 Cannabis use, unspecified, uncomplicated; F15.90 Other stimulant use, unspecified, uncomplicated; Z59.0 Homelessness; Z91.14 Patient's other noncompliance with medication regimen; Z86.73 Personal history of transient ischemic attack (TIA), and cerebral infarction without residual deficits; Z98.890 Other specified postprocedural states; Z95.5 Presence of coronary angioplasty implant and graft; Z88.8 Allergy status to other drugs, medicaments and biological substances; Z88.6 Allergy status to analgesic agent; Z79.899 Other long term (current) drug therapy
CPT/HCPCS: 99284

== ENCOUNTER 2020-12-16 13:39 | Emergency (ER) | payer MEDICARE, MEDICAID ==
[~2020-12-16] VITALS: Ht 172.7 cm; Wt 92.2 kg
[2020-12-16 13:49] VITALS: BP 166/107
== END 2020-12-16 14:56 | disposition left against medical advice (07) ==
LOC: ER 13:42
DX: R41.0 Disorientation, unspecified (principal); Z53.21 Procedure and treatment not carried out due to patient leaving prior to being seen by health care provider

== ENCOUNTER 2023-11-14 20:51 | Emergency (ER) | payer MEDICARE, MEDICAID ==
[~2023-11-14] VITALS: Ht 172.7 cm; Wt 72.7 kg
[2023-11-14 20:57] VITALS: BP 170/98; PULSE 95; RESP 16; TEMP 97.7; O2SAT 96
[2023-11-14 21:34] LABS: BASOPHILS # (AUTO) 0.2 X10'3 (0-0.2); BASOPHILS % (AUTO) 1.8 % (0-1); EOSINOPHILS # (AUTO) 0.3 X10'3 (0-0.9); EOSINOPHILS % (AUTO) 2.6 % (0-6); HEMATOCRIT 43.6 % (42.0-52.0); HEMOGLOBIN 14.1 g/dl (14.0-17.9); LYMPHOCYTES # (AUTO) 1.2 X10'3 (1.1-4.8); LYMPHOCYTES % (AUTO) 12.3 % (21-51); MEAN CORPUSCULAR HEMOGLOBIN 29.5 PG (27.0-31.0); MEAN CORPUSCULAR HGB CONC 32.3 g/dL (33.0-36.5); MEAN CORPUSCULAR VOLUME 91.1 FL (78-98); MEAN PLATELET VOLUME 7.9 FL (7.4-10.4); MONOCYTES # (AUTO) 0.9 X10'3 (0-0.9); MONOCYTES % (AUTO) 8.6 % (2-12); NEUTROPHILS # (AUTO) 7.5 X10'3 (1.8-7.7); NEUTROPHILS % (AUTO) 74.7 % (42-75); PLATELET COUNT 397 X10'3 (140-440); RED BLOOD COUNT 4.79 X10'6 (4.70-6.10); RED CELL DISTRIBUTION WIDTH 14.7 % (11.5-14.5); WHITE BLOOD COUNT 10.1 X10'3 (4.5-11.0)
[2023-11-14 21:55] LABS: ALANINE AMINOTRANSFERASE 24 U/L (12-78); ALBUMIN 3.8 G/DL (3.4-5.0); ALBUMIN/GLOBULIN RATIO 0.8 (1.1-1.5); ALKALINE PHOSPHATASE 127 IU/L (46-116); ANION GAP 5 (8-16); ASPARTATE AMINO TRANSFERASE 32 U/L (10-37); BILIRUBIN,TOTAL 0.8 MG/DL (0.1-1.0); BLOOD UREA NITROGEN 24 MG/DL (7-18); CALCIUM 8.7 MG/DL (8.5-10.1); CHLORIDE 104 MMOL/L (99-107); CREATININE 1.26 MG/DL (0.60-1.10); GLUCOSE 114 MG/DL (70-104); SODIUM 141 MMOL/L (135-145); TOTAL CARBON DIOXIDE 31.6 MMOL/L (24-32); TOTAL PROTEIN 8.7 G/DL (6.4-8.2); eCRCL 54 ML/MIN; eGFR 57 ML/MIN
[2023-11-14 22:03] LABS: PRO BRAIN NATRIURETIC PEPTIDE 214 PG/ML (0-125)
[2023-11-14 22:08] LABS: POTASSIUM 3.9 MMOL/L (3.5-5.1)
== END 2023-11-15 01:36 | disposition left against medical advice (07) ==
LOC: ER 20:53
DX: R06.02 Shortness of breath (principal); R05.9 Cough, unspecified; R09.81 Nasal congestion; Z53.21 Procedure and treatment not carried out due to patient leaving prior to being seen by health care provider
CPT/HCPCS: 36415; 71045; 80053; 83880; 84484; 85025; 93005; 99281

== ENCOUNTER 2024-04-15 17:52 | Emergency (ER) | payer MEDICARE, MEDICAID ==
[~2024-04-15] VITALS: Ht 172.7 cm; Wt 72.7 kg
[2024-04-15] MEDS: morphine 4 MG/ML inj SYRINge IV ONE (19:06)
[2024-04-15] MEDS: piperacillin/tazo 3.375gm/50ml 50 ML IV ONE (19:09)
[2024-04-15] MEDS: vancomycin/NS 1 GM ADD-VANTAGE 250 ML IV ONE (19:11)
[2024-04-15] MEDS: LIDOcaine 1% W/epiNEPHrine 1:100,000 20ml vial IJ ONE (19:15)
[2024-04-15] MEDS: LIDOcaine/epinephrine/tetracaine TOPICAL sol 3 ML syringe TOP ONE (19:15)
[2024-04-15 19:23] LABS: ALBUMIN 3.7 G/DL (3.4-5.0); ANION GAP 8 (8-16); BLOOD UREA NITROGEN 16 MG/DL (7-18); BUN/CREATININE RATIO 14.7 (10.0-20.0); CHLORIDE 104 MMOL/L (99-107); CREATININE 1.09 MG/DL (0.60-1.10); GLUCOSE 124 MG/DL (70-104); POTASSIUM 3.5 MMOL/L (3.5-5.1); SODIUM 141 MMOL/L (135-145); TOTAL CARBON DIOXIDE 29.1 MMOL/L (24-32); eCRCL 63 ML/MIN; eGFR 67 ML/MIN
[2024-04-15 19:32] LABS: BASOPHILS # (AUTO) 0.1 X10'3 (0-0.2); BASOPHILS % (AUTO) 0.4 % (0-1); EOSINOPHILS # (AUTO) 0.1 X10'3 (0-0.9); EOSINOPHILS % (AUTO) 0.9 % (0-6); HEMATOCRIT 42.7 % (42.0-52.0); HEMOGLOBIN 14.2 g/dl (14.0-17.9); LYMPHOCYTES # (AUTO) 1.3 X10'3 (1.1-4.8); MEAN CORPUSCULAR HEMOGLOBIN 30.9 PG (27.0-31.0); MEAN CORPUSCULAR HGB CONC 33.2 g/dL (33.0-36.5); MEAN CORPUSCULAR VOLUME 93.1 FL (78-98); MEAN PLATELET VOLUME 8.4 FL (7.4-10.4); MONOCYTES # (AUTO) 1.2 X10'3 (0-0.9); MONOCYTES % (AUTO) 8.3 % (2-12); NEUTROPHILS # (AUTO) 11.9 X10'3 (1.8-7.7); NEUTROPHILS % (AUTO) 81.4 % (42-75); PLATELET COUNT 320 X10'3 (140-440); RED BLOOD COUNT 4.59 X10'6 (4.70-6.10); RED CELL DISTRIBUTION WIDTH 14.2 % (11.5-14.5); WHITE BLOOD COUNT 14.7 X10'3 (4.5-11.0)
[2024-04-15] MEDS: HYDROmorphone 1 mg/ml syringe IV ONE (20:13)
[2024-04-15] MEDS ORDERED: CEPH-585 PO (21:18)
[2024-04-15] MEDS ORDERED: SULF1TAB49 PO (21:18)
[2024-04-15] MEDS: HYDROcodone/acetaminophen 5mg/325mg tablet PO ONE (21:31)
[2024-04-15 21:45] VITALS: BP 141/97; PULSE 70; RESP 12; TEMP 98.1; O2SAT 98
== END 2024-04-15 21:47 | disposition home or self-care (01) ==
LOC: ER 17:52
DX: L02.413 Cutaneous abscess of right upper limb (principal); L03.113 Cellulitis of right upper limb; I25.2 Old myocardial infarction; J44.9 Chronic obstructive pulmonary disease, unspecified; K21.9 Gastro-esophageal reflux disease without esophagitis; G89.29 Other chronic pain; M54.9 Dorsalgia, unspecified; Z98.890 Other specified postprocedural states; F17.200 Nicotine dependence, unspecified, uncomplicated; F12.90 Cannabis use, unspecified, uncomplicated; F15.90 Other stimulant use, unspecified, uncomplicated; Z88.8 Allergy status to other drugs, medicaments and biological substances; Z79.899 Other long term (current) drug therapy; Z79.2 Long term (current) use of antibiotics; Z86.73 Personal history of transient ischemic attack (TIA), and cerebral infarction without residual deficits
CPT/HCPCS: 10060; 36415; 73090; 80048; 83605; 83735; 84145; 85025; 87040; 87070; 87077; 87186; 93005; 96365; 96366; 96368; 96375; 99285; A6266; A6402; J1170; J2270; J2543; J3370; J3490; Z7610; A6449

== ENCOUNTER 2024-08-29 10:37 | Emergency (ER) | payer MEDICARE, MEDICAID ==
[~2024-08-29] VITALS: Ht 172.7 cm; Wt 71.5 kg
[~2024-08-29 10:37] MED LIST changes: +CEPH-585 PO
[2024-08-29 10:43] VITALS: TEMP 97.8
[2024-08-29 11:23] LABS: BASOPHILS % (AUTO) 0.4 % (0-1); EOSINOPHILS # (AUTO) 0.2 X10'3 (0-0.9); EOSINOPHILS % (AUTO) 1.5 % (0-6); HEMATOCRIT 42.9 % (42.0-52.0); HEMOGLOBIN 14.2 g/dl (14.0-17.9); LYMPHOCYTES # (AUTO) 1.2 X10'3 (1.1-4.8); LYMPHOCYTES % (AUTO) 11.9 % (21-51); MEAN CORPUSCULAR HEMOGLOBIN 30.8 PG (27.0-31.0); MEAN CORPUSCULAR HGB CONC 33.1 g/dL (33.0-36.5); MEAN CORPUSCULAR VOLUME 92.8 FL (78-98); MEAN PLATELET VOLUME 8.1 FL (7.4-10.4); MONOCYTES # (AUTO) 0.9 X10'3 (0-0.9); MONOCYTES % (AUTO) 8.3 % (2-12); NEUTROPHILS # (AUTO) 8.2 X10'3 (1.8-7.7); NEUTROPHILS % (AUTO) 77.9 % (42-75); PLATELET COUNT 368 X10'3 (140-440); RED BLOOD COUNT 4.62 X10'6 (4.70-6.10); RED CELL DISTRIBUTION WIDTH 14.3 % (11.5-14.5); WHITE BLOOD COUNT 10.5 X10'3 (4.5-11.0)
[2024-08-29 11:33] LABS: ALANINE AMINOTRANSFERASE 41 U/L (12-78); ALBUMIN 3.3 G/DL (3.4-5.0); ALBUMIN/GLOBULIN RATIO 0.9 (1.1-1.5); ALKALINE PHOSPHATASE 111 IU/L (46-116); ANION GAP 7 (8-16); ASPARTATE AMINO TRANSFERASE 55 U/L (10-37); BILIRUBIN,TOTAL 0.6 MG/DL (0.1-1.0); BLOOD UREA NITROGEN 37 MG/DL (7-18); BUN/CREATININE RATIO 36.6 (10.0-20.0); CALCIUM 8.6 MG/DL (8.5-10.1); CHLORIDE 103 MMOL/L (99-107); CREATININE 1.01 MG/DL (0.60-1.10); GLUCOSE 133 MG/DL (70-104); POTASSIUM 3.4 MMOL/L (3.5-5.1); SODIUM 138 MMOL/L (135-145); TOTAL CARBON DIOXIDE 28.2 MMOL/L (24-32); TOTAL PROTEIN 7.1 G/DL (6.4-8.2); eCRCL 67 ML/MIN; eGFR 73 ML/MIN
[2024-08-29] MEDS: normal saline 1000ML IV soln IVB ONE (13:08)
[2024-08-29 13:17] VITALS: BP 134/77; PULSE 75; RESP 18; O2SAT 99
== END 2024-08-29 15:46 | disposition home or self-care (01) ==
LOC: ER 10:38
DX: E86.0 Dehydration (principal); R42 Dizziness and giddiness; G89.29 Other chronic pain; I25.10 Atherosclerotic heart disease of native coronary artery without angina pectoris; J44.9 Chronic obstructive pulmonary disease, unspecified; K21.9 Gastro-esophageal reflux disease without esophagitis; F12.90 Cannabis use, unspecified, uncomplicated; I25.2 Old myocardial infarction; I10 Essential (primary) hypertension; E78.00 Pure hypercholesterolemia, unspecified; Z88.1 Allergy status to other antibiotic agents; Z88.8 Allergy status to other drugs, medicaments and biological substances; Z79.899 Other long term (current) drug therapy; Z86.73 Personal history of transient ischemic attack (TIA), and cerebral infarction without residual deficits
CPT/HCPCS: 36415; 71045; 80053; 84145; 84484; 85025; 93005; 96360; 99285; J7030

== ENCOUNTER 2025-09-04 00:35 | Emergency (ER) | payer MEDICARE, MEDICAID ==
[~2025-09-04] VITALS: Ht 172.7 cm; Wt 79.4 kg
[~2025-09-04 00:35] MED LIST changes: -CEPH-585 PO
--- NOTE | 2025-09-04 01:01 | Physician Documentation ---
History of Present Illness ~ Chief Complaint: Nausea Stated Complaint: MULTIPLE COMPLAINTS Time Seen by MD: 00:53 Primary Medical Doctor: none HPI Patient presents to the emergency room generally not feeling well. He states it has been going on for several days to weeks. He is homeless and states that he was living off a [address] but they kicked him out because they are assholes . I asked him about the [place] and he states that that has not like the people there. Mild cough. Medication Reconciliation Allergies: Coded Allergies: dextromethorphan HBr (Verified Allergy, Unknown, 08/29/24) doxylamine (Verified Allergy, Unknown, 08/29/24) ketorolac tromethamine (Verified Allergy, Unknown, 08/29/24) pseudoephedrine HCl (Verified Allergy, Unknown, 08/29/24) quetiapine (Unverified Allergy, Unknown, 08/29/24) zolpidem (Unverified Allergy, Unknown, 08/29/24) Scheduled Amlodipine Besylate (Norvasc), 1 TAB PO DAILY Linezolid (Linezolid), 600 MG PO Q12H Past Medical History Past Medical History: CVA/TIA/Stroke, Angina, Myocardial Infarction, Bronchitis, COPD, Pneumonia, GERD, Hernia, Chronic Pain, Chronic Back Pain, Cellulitis Past Surgical History: angioplasty, other Other Past Surgical History: mandibular surgery; cardiac stents Other Past Family History: Leukemia (mother) Alcohol Use: None Drug Use: marijuana, methamphetamine Lives with: Other Lives In: Home Occupation: disabled Review of Systems ROS All review of systems negative except as per HPI Physical Exam Vital Signs: Temperature: 98.9, Source: Temporal, Heart Rate: 84, Respiratory Rate: 16, BP: 161/98, Pulse Oximetry: 97, Weight: 79.400 Oxygen Flow Rate: 0 Physical Exam General: Patient is awake, alert, oriented x4 in no acute distress Head: Normocephalic and atraumatic. Eyes: Conjunctival normal. EOMI. PERRL. ENT: Mucous membranes moist. Neck: Supple, trachea is midline. Chest: Clear to auscultation bilaterally without rales, rhonchi, or wheezes. There is no accessory muscle use or retractions. Cardiac: RRR without murmurs, gallops, or rubs. Abd: Soft, nondistended, nontender, with normoactive bowel sounds. No guarding, rebound, or rigidity. Neuro: Cranial nerves II-XII grossly intact. No focal neuro deficits. Patient ambulating without difficulty. Progress Results/Orders Results/Orders Orders - NIMESH RIVAS MD Chest,Single View (09/04/25 01:40) Completed Orders - NIMESH RIVAS MD Cbc/Diff (09/04/25 00:57) MG (09/04/25 00:57) Electrocardiogram (09/04/25 00:57) PBNP (09/04/25 00:57) Urinalysis (09/04/25 00:57) Hs Troponin I W Calculations (09/04/25 00:57) Procalcitonin (09/04/25 00:57) CMP (09/04/25 00:57) Chest,Single View (09/04/25 01:40) Vital Signs 09/04/25 00:37 Temp 98.9 Pulse 84 Resp 16 B/P (MAP) 161/98 Pulse Ox 97 O2 Flow Rate 0 Laboratory Tests Test 09/04/25 01:35 09/04/25 03:21 White Blood Count 12.1 H Red Blood Count 4.45 L Hemoglobin 13.3 L Hematocrit 39.7 L Mean Corpuscular Volume 89.2 Mean Corpuscular Hemoglobin 29.8 Mean Corpuscular Hemoglobin Concent 33.4 Red Cell Distribution Width 13.6 Platelet Count 398 Mean Platelet Volume 7.3 L Neutrophils (%) (Auto) 77.5 H Lymphocytes (%) (Auto) 11.0 L Monocytes (%) (Auto) 9.1 Eosinophils (%) (Auto) 2.0 Basophils (%) (Auto) 0.4 Neutrophils # (Auto) 9.4 H Lymphocytes # (Auto) 1.3 Monocytes # (Auto) 1.1 H Eosinophils # (Auto) 0.2 Basophils # (Auto) 0.1 CBC Comment Sodium Level 137 Potassium Level 4.2 Chloride Level 103 Carbon Dioxide Level 27.3 Anion Gap 7 L Blood Urea Nitrogen 18 Creatinine 0.82 Estimated GFR/1.73 m2 > 90 BUN/Creatinine Ratio 22.0 H Glucose Level 128 H Calcium Level 8.5 Magnesium Level 1.8 Total Bilirubin 0.2 Aspartate Amino Transf (AST/SGOT) 19 Alanine Aminotransferase (ALT/SGPT) 19 Alkaline Phosphatase 130 H Troponin I High Sensitivity 11 Pro-B-Type Natriuretic Peptide 153 H Total Protein 7.4 Albumin 3.3 L Globulin 4.1 Albumin/Globulin Ratio 0.8 L Procalcitonin < 0.05 Chemistry Comments Urine Specimen Description Urinal Urine Color Straw Urine Clarity Clear Urine pH 7.5 Urine Specific Paradox 1.015 Urine Protein Negative Urine Glucose (UA) Negative Urine Ketones Negative Urine Occult Blood Negative Urine Nitrite Negative Urine Bilirubin Negative Urine Urobilinogen 0.2 Urine Leukocyte Esterase Negative Volume Urine Centrifuged 10 ml Urine Comment Medical Decision Making Additional information obtaine: N/A Findings Patient presents to the emergency room for evaluation of generally not feeling well. Differentials were vas which include but are not limited to viral syndrome, infectious phenomenon, electrolyte disturbances therefore labs and chest x-ray ordered which were reassuring. He does endorse a cough. I will provide him Z-Toby. Vital signs stable Diff Dx GI Bleed:Consideration: Include: Blood loss anemia Diff Dx Pain:Considerations: Include: Bowel obstruction Diff Dx N/V/D:Considerations: Include: Diarrhea - bacterial Diff Dx Rectal:Considerations: Include: Fistula Departure Disposition: HOME / SELF CARE / HOMELESS Impression: Primary Impression: Malaise Additional Impression: Cough Condition: Stable Discharge Instructions: Cough, Adult, [id number] Referrals: NO PRIMARY CARE PROVIDER (PCP) Prescriptions Azithromycin (Zithromax) 250 Mg Tablet 250 MG PO DAILY, #6 TAB Take 2 tabs on day one, one tab daily thereafter Prov: NIMESH RIVAS MD 09/04/25 Signature Scribe Signature: No scribe Attestation: The note accurately reflects work and decisions made by me.Nimesh Rivas MD 09/04/25 03:43 NIMESH RIVAS MD Sep 04, 2025 01:01
--- NOTE | 2025-09-04 01:07 | ELECTROCARDIOGRAPH REPORT ---
[facility] Test Date: 2025-09-04 Test Time: 01:05:08 Pat Name: IOANA HUMPHREYS Department: [facility]- Patient ID: [facility]-[id number] Room: Gender: M Chairman And Ceo: : 1955 Requested By: THADDEUS REYNOSO Order Number: [id number] Reading MD: Dr. MARCIO Gomez Measurements Intervals [place] Rate: 82 P: 67 LA: 123 QRS: -58 QRSD: 136 T: 35 QT: 400 QTc: 468 Interpretive Statements Sinus rhythm Right bundle branch block Inferior infarct, old Electronically Signed On 09-06-2025 18:00:[address] MARCIO Gomez Please click the below link to view image of tracing.
[2025-09-04 01:47] LABS: MEAN PLATELET VOLUME 7.3 FL (7.4-10.4); RED CELL DISTRIBUTION WIDTH 13.6 % (11.5-14.5)
[2025-09-04 02:21] LABS: CREATININE 0.82 MG/DL (0.60-1.10); TOTAL CARBON DIOXIDE 27.3 MMOL/L (24-32); eCRCL 81 ML/MIN; eGFR > 90 ML/MIN
[2025-09-04 02:28] LABS: PRO BRAIN NATRIURETIC PEPTIDE 153 PG/ML (0-125)
--- NOTE | 2025-09-04 02:41 | RADIOLOGY REPORT ---
CHEST RADIOGRAPH Indication: cough Technique: Single frontal view of the chest was obtained Comparison: DI CHEST,SINGLE VIEW on DOS: 08/29/24, DI CHEST,SINGLE VIEW on DOS: 11/14/23 IMPRESSION: Heart appears normal in size. Possible patchy airspace opacity at the left lung base. Mild pulmonary vascular congestion. No pneumothorax or effusion. Benign- appearing calcification in the left ollie thorax/ axilla, stable
[2025-09-04 03:34] LABS: LEUKOCYTE ESTERASE ,URINE NEGATIVE (Neg); NITRITES, URINE NEGATIVE (Neg); OCCULT BLOOD,URINE NEGATIVE (Neg)
[2025-09-04 03:35] LABS: UA COLLECTION TYPE URINAL
[2025-09-04] MEDS ORDERED: AZIT-164 PO (03:43)
[2025-09-04 04:02] VITALS: BP 152/90; PULSE 76; RESP 18; TEMP 98.6; O2SAT 96
== END 2025-09-04 04:04 | disposition home or self-care (01) ==
LOC: ER 00:35
DX: R53.81 Other malaise (principal); R05.9 Cough, unspecified; R06.02 Shortness of breath; I25.2 Old myocardial infarction; J44.9 Chronic obstructive pulmonary disease, unspecified; K21.9 Gastro-esophageal reflux disease without esophagitis; F12.90 Cannabis use, unspecified, uncomplicated; F15.90 Other stimulant use, unspecified, uncomplicated; Z86.73 Personal history of transient ischemic attack (TIA), and cerebral infarction without residual deficits
CPT/HCPCS: 36415; 71045; 80053; 81003; 83735; 83880; 84145; 84484; 85025; 93005; 99285